=== PATIENT | female | born 1955 | race Caucasian/White ===

== ENCOUNTER 2019-08-26 13:57 | Emergency (ER) | payer BC ==
[~2019-08-26] VITALS: Ht 170.2 cm; Wt 78.9 kg
[2019-08-26] MEDS ORDERED: METOPROLOL SUCC50 MG PO (14:03)
[2019-08-26] MEDS ORDERED: NORVASC 2.5 MG2.5 M1 PO ×3 (14:04→15:12)
[2019-08-26] MEDS ORDERED: CHLORTHALIDONE25 MG PO (15:12)
[2019-08-26 15:13] LABS: ABSOLUTE NEUTROPHILS 9.8 thou/uL (1.4-8.2); BASOPHILS 0.1 % (0.0-2.0); EOSINOPHILS 0.3 % (0.0-3.0); HEMATOCRIT 43.8 % (37.0-47.0); HEMOGLOBIN 14.5 gm/dL (12.0-15.0); LYMPHOCYTES 3.2 % (24.0-44.0); MCH 29.2 pg (26.0-34.0); MCV 88.5 fL (80.0-100.0); MONOCYTES 2.4 % (1.0-8.0); PLATELET COUNT 204 thou/uL (150-400); RBC 4.95 mil/uL (4.20-5.00); WBC 10.5 thou/uL (4.0-11.0)
[2019-08-26] MEDS ORDERED: TOPROL XL50 MG PO (15:13)
[2019-08-26] MEDS ORDERED: COLESTID1 GM PO (15:13)
[2019-08-26] MEDS ORDERED: NYSTATIN15 G1 TOP (15:14)
[2019-08-26 15:21] LABS: ANION GAP 8 mmol/L (7-16); BUN 23 mg/dL (7-18); CALCIUM 9.4 mg/dL (8.5-10.1); CHLORIDE 100 mmol/L (98-107); CO2 31 mmol/L (21-32); CREATININE 0.7 mg/dL (0.6-1.0); GLUCOSE 111 mg/dL (74-106); POTASSIUM 3.8 mmol/L (3.5-5.1); SODIUM 139 mmol/L (136-145)
[2019-08-26 15:33] LABS: ALBUMIN 3.8 g/dL (3.4-5.0); DIRECT BILIRUBIN 0.2 mg/dL (<0.1-0.2); LIPASE 71 U/L (73-393); SGOT 395 U/L (15-37); SGPT 290 U/L (30-65); TOTAL BILIRUBIN 0.8 mg/dL (<0.1-1.0); TROPONIN-I <0.06 ng/mL (<0.06)
--- NOTE | 2019-08-26 17:26 | EKG ---
[facility] [place] [address] ELECTROCARDIOGRAM REPORT Name: NATHEN WRIGHT Room #: REG [facility]#: [id number] Admission: 08/26/19 Attend Phys: Discharge: Date of : 55 Report #: [id number] THIS REPORT FOR: cc: FAM - No family physician/PCP FAM - No family physician/PCP Kirk Mariano MD [facility] THIS REPORT FOR: //name// [facility] ED Test Date: 2019-08-26 Test Time: 14:13:22 Pat Name: NATHEN WRIGHT Department: Room: Gender: F Teller: ZANE : 1955 Requested By: Raina Angulo Order Number: [id number] MD: Kirk Mariano Measurements Intervals [place] Rate: 86 P: 81 WI: 200 QRS: 0 QRSD: 79 T: 23 QT: 370 QTc: 443 Interpretive Statements Sinus rhythm Inferior infarct, old No previous ECG available for comparison Electronically Signed On 08-26-2019 17:25:24 [employer] by Kirk Mariano [email or web address] <ELECTRONICALLY SIGNED> By: Kirk Mariano MD, [facility] 08/26/19 1725 D: [id number] Kirk Mariano MD, FACC /EPI
[2019-08-26] MEDS ORDERED: LIDOCAINE PO (17:39)
[2019-08-26 17:52] VITALS: BP 145/72
== END 2019-08-26 17:53 | disposition home or self-care (01) ==
LOC: ER 13:57
PROVIDERS: Emergency Medicine
DX: R13.10 Dysphagia, unspecified (principal); I10 Essential (primary) hypertension; Z90.49 Acquired absence of other specified parts of digestive tract